=== PATIENT | male | born 1995 | race Two or more races ===

== ENCOUNTER 2017-11-03 08:40 | Emergency (ER) | payer MEDICAID ==
[~2017-11-03] VITALS: Ht 167.6 cm; Wt 73.3 kg
[2017-11-03 08:43] VITALS: BP 148/90
== END 2017-11-03 09:52 | disposition home or self-care (01) ==
LOC: ED 09:45
DX: M79.671 Pain in right foot (principal); M25.571 Pain in right ankle and joints of right foot
CPT/HCPCS: 99284